=== PATIENT | female | born 1980 | race Caucasian/White ===

== ENCOUNTER 2017-05-19 20:59 | Emergency (ER) | payer OTHER ==
[~2017-05-19] VITALS: Ht 144.8 cm; Wt 54.5 kg
[2017-05-19 20:59] VITALS: BP 137/89
[2017-05-19 23:07] LABS: MEAN CORPUSCULAR HEMOGLOBIN 32.1 pg (27.0-33.0); MEAN CORPUSCULAR HGB CONC 36.2 g/dl (32.0-36.5); MEAN CORPUSCULAR VOLUME 88.6 fl (80.0-96.0); RED CELL DISTRIBUTION WIDTH 12.1 % (11.5-14.5); WHITE BLOOD COUNT 5.6 K/mm3 (4.0-10.0)
[2017-05-19 23:15] LABS: ANION GAP 4 MEQ/L (8-16); BLOOD UREA NITROGEN 9 MG/DL (7-18); CALCIUM LEVEL 8.6 MG/DL (8.5-10.1); CARBON DIOXIDE LEVEL 30 MEQ/L (21-32); CHLORIDE LEVEL 103 MEQ/L (98-107); CREATININE FOR GFR 0.73 MG/DL (0.55-1.02); GLOMERULAR FILTRATION RATE > 60.0 (>60); GLUCOSE, FASTING 108 MG/DL (70-105); POTASSIUM SERUM 3.4 MEQ/L (3.5-5.1); SODIUM LEVEL 137 MEQ/L (136-145)
[2017-05-19] MEDS ORDERED: MORPHINE 4 MG/ML 1ML SYRINGE IV PRN (23:45)
[2017-05-19] MEDS ORDERED: ONDANSETRON 4MG/2ML VIAL (J2405) IV ONE (23:45)
[2017-05-19] MEDS ORDERED: NS 1,000 ML IV ONE (23:45)
[2017-05-19 23:58] LABS: CONTROL LINE HCG INT CTR LINE PRESENT
[2017-05-20 00:10] LABS: ALBUMIN 3.9 GM/DL (3.2-5.2); ALBUMIN/GLOBULIN RATIO 1.08 (1.00-1.93); ALKALINE PHOSPHATASE 86 U/L (45-117); ALT/SGPT 23 U/L (12-78); AST/SGOT 16 U/L (15-37); BILIRUBIN,DIRECT 0.2 MG/DL (0.0-0.2); BILIRUBIN,TOTAL 0.5 MG/DL (0.2-1.0); TOTAL PROTEIN 7.5 GM/DL (6.4-8.2)
[2017-05-20] MEDS ORDERED: ISOVUE-370 76% 100ML VIAL (Q9967) As Ordered ONE (00:13)
--- NOTE | 2017-05-20 01:10 | REPUSA ---
CLINICAL HISTORY: Abdominal pain. TECHNIQUE: Multiple axial, sagittal and coronal CT images were obtained through the abdomen and pelvi s after administration of intravenous contrast material. COMMENTS: 1.8 cm left ovarian ruptured follicle versus corpus luteum cyst. Large bowel fecal stasis. The liver is moderately enlarged with decreased attenuation without mass or defect. There is no intra or extrahepatic biliary ductal dilatation. The spleen is normal. The gallbladder is within normal li mits. The pancreas is of normal contour and attenuation characteristics. There is no evidence of adre nal mass. Both kidneys demonstrate prompt and equal nephrograms. The kidneys are normal in size, shape and conf iguration. There is no evidence of renal or ureteral mass. No renal or ureteral calculi are identifie d. There is no hydroureter or hydronephrosis. No evidence for appendicitis. There is diffuse small bowel wall thickening. Mildly prominent adjacent mesenteric lymph nodes with the largest measuring 1.3 cm. No evidence for small or large bowel obstruction. There is no evidence of intrinsic or extrinsic bladder mass. There is small amount of free pelvic flu id. Images of the lung bases show no evidence of pleural or parenchymal mass. There are no pleural effusi ons. The bony structures are free of lytic or blastic lesions. IMPRESSION: Hepatomegaly with fatty liver infiltration. Fluid-filled small bowel loops, probably mild enteritis. Adjacent moderately prominent central mesenteric lymph nodes. Reactive to nonspecific enteritis versu s mild mesenteric adenitis. Small amount of free pelvic fluid. Ruptured follicle versus corpus luteum cyst of the left ovary. Fecal stasis in the distal large bowels. Thank you for your kind referral of this patient.
[2017-05-20] MEDS ORDERED: ZOFR4TAB3 PO (01:26)
== END 2017-05-20 01:33 | disposition home or self-care (01) ==
LOC: M ED 20:59
DX: K52.9 Noninfective gastroenteritis and colitis, unspecified (principal); K76.0 Fatty (change of) liver, not elsewhere classified; N83.02 Follicular cyst of left ovary; Z88.2 Allergy status to sulfonamides; Z88.1 Allergy status to other antibiotic agents
CPT/HCPCS: 74177; 80048; 80076; 84703; 85027; 96374; 96375; 99283; J2405; Q9967

== ENCOUNTER → 2017-06-09 | Outpatient (CLI) | payer OTHER ==
[~2017-06-09] MED LIST: ZOFR4TAB3 PO
--- NOTE | 2017-06-09 14:52 | REP ---
Left second toe series: Four views. History: Injury. Findings: Four views of the left second toe show a calcific density at the lateral aspect of the middle phalanx in the adjacent soft tissues. No fracture is seen. Bones joints and soft tissues are otherwise unremarkable. Impression: Calcific density adjacent to the middle phalanx of the second toe measures 4 mm . No fracture is evident on these views. No soft tissue gas seen. Signed by Ruddy Clemens MD 06/09/2017 03:09 P
== END ==
LOC: M LRY 14:19
PROVIDERS: ATTEND Physician Assistant
DX: M79.674 Pain in right toe(s) (principal)
CPT/HCPCS: 73660; G0463